=== PATIENT | female | born 2000 | race Asian ===

== ENCOUNTER → 2020-08-27 | Outpatient (CLI) | payer SELFPAY ==
--- NOTE | 2020-08-27 15:33 | RADIOLOGY REPORT (SQ) ---
EXAM DESCRIPTION: U/S [id number] TRNABD 1GES W/ODOP IMAGES COMPLETED DATE/TIME: 08/27/2020 3:07 pm REASON FOR STUDY: (Z34.90)ENCNTR FOR SUPRVSN OF NORMAL , UNSP, UNSP TRIMESTER Z34.90 ENCNT R FOR SUPRVSN OF NORMAL , UNSP, UNSP TR COMPARISON: None. TECHNIQUE: Transabdominal static and realtime grayscale images acquired of the pelvis. Additional se lected spectral and color Doppler images recorded. All images stored on PACs. bHCG: Not available. CLINICAL DATES: VARINDER: 03/03/2021. EGA: 13 weeks 1 day LIMITATIONS: None. FINDINGS: FETUS: Single Living intrauterine . ULTRASOUND EGA: 14 weeks 3 days ULTRASOUND VARINDER: 02/22/2021 EFW: Not applicable less than 20 weeks. FHR: 162 beats per minute. SURVEY: Too early to assess full anatomy. AMNIOTIC FLUID: LVP--- 4.1 cm x 4.3 cm PLACENTA: Posterior. SUBCHORIONIC BLEED: No. SIZE OF BLEED: Not applicable. UTERUS: No masses. No anomalies. CERVICAL LENGTH: 2.4 cm Closed. RIGHT ADNEXA: Normal ovary with normal vascular flow. No adnexal free fluid. No adnexal masses. LEFT ADNEXA: Normal ovary with normal vascular flow. No adnexal free fluid. No adnexal masses. FREE FLUID: None. OTHER: No other significant finding. IMPRESSION: LIVING INTRAUTERINE . EGA: 14 weeks 3 days Trimester of : Second trimester - 13 weeks 1 day to 27 weeks 6 days. TECHNICAL DOCUMENTATION: JOB ID: [id number] [employer]- All Rights Reserved Reading location - IP/workstation name: [email or web address]
== END ==
LOC: RAD 14:36
PROVIDERS: ATTEND Midwife
DX: Z34.82 Encounter for supervision of other normal pregnancy, second trimester (principal); Z3A.14 14 weeks gestation of pregnancy
CPT/HCPCS: 76801